=== PATIENT | female | born 1960 | race Caucasian/White ===

== ENCOUNTER 2016-03-08 14:37 | Inpatient (IN) | payer BC, MEDICARE ==
[~2016-03-08] VITALS: Ht 162.6 cm; Wt 60.1 kg
[2016-03-08] MEDS ORDERED: ALU/MAG/SIM 30 ML UDC PO PRN (15:10)
[2016-03-08] MEDS ORDERED: MAG HYDROX 30 ML UDC PO PRN (15:10)
[2016-03-08] MEDS ORDERED: GLUCAGON 1 MG VIAL IM PRN (15:10)
[2016-03-08] MEDS ORDERED: DEXTROSE 50% SYRINGE 50 ML IV PRN (15:10)
[2016-03-08 16:49] VITALS: BP_SYST 104; BP_SYST 110; RESP 18; TEMP 97.9; Ht 162.6 cm; Wt 60.1 kg
[2016-03-08] MEDS: ONDANSETRON 4 MG VIAL IV PRN (17:14)
[2016-03-08] MEDS: SODIUM CHLORIDE 0.45% 1,000 ML IV SCH (17:14)
[2016-03-08] MEDS: PAROXETINE HCL 20 MG TAB PO SCH (18:09)
[2016-03-08] MEDS: METRONIDAZOLE 500MG/100ML 100 ML IV SCH (18:12)
[2016-03-08] MEDS: ZOLPIDEM 5 MG TAB PO PRN (20:18)
[2016-03-08 20:39] VITALS: BP_SYST 112; RESP 18
[2016-03-09 00:46] VITALS: BP_SYST 122; RESP 16; TEMP 97.7
[2016-03-09] MEDS: METRONIDAZOLE 500MG/100ML 100 ML IV SCH ×5 (00:53→23:42)
[2016-03-09] MEDS: SODIUM CHLORIDE 0.45% 1,000 ML IV SCH ×2 (05:03→21:48)
[2016-03-09] MEDS: ONDANSETRON 4 MG VIAL IV PRN ×3 (05:03→21:43)
[2016-03-09 07:44] VITALS: BP_SYST 112; RESP 16; TEMP 98.1
[2016-03-09] MEDS: ACETAMINOPHEN 325 MG TAB PO PRN (08:05)
[2016-03-09] MEDS: PAROXETINE HCL 20 MG TAB PO SCH (08:05)
[2016-03-09 11:15] VITALS: BP_SYST 122; RESP 16; TEMP 97.5
[2016-03-09 15:14] VITALS: BP_SYST 130; RESP 16; TEMP 99.4
[2016-03-09] MEDS ORDERED: METOCLOPRAMIDE 10 MG/2 ML VIAL IV PUSH ONE (17:15)
[2016-03-09 19:48] VITALS: BP_SYST 130; RESP 16; TEMP 97.2
[2016-03-09] MEDS: ZOLPIDEM 5 MG TAB PO PRN (21:42)
[2016-03-09] MEDS: PRAMIPEXOLE 0.5 MG TAB PO SCH (21:42)
[2016-03-09] MEDS: RIFAXIMIN 550 MG TAB PO SCH (21:42)
[2016-03-09 23:35] VITALS: BP_SYST 118; RESP 16; TEMP 97.1
[2016-03-10] VITALS (7 sets, daily range): BP systolic 120–130; RESP 16–20; TEMP 97.9–98.7
[2016-03-10] MEDS: METRONIDAZOLE 500MG/100ML 100 ML IV SCH ×3 (05:17→17:03)
[2016-03-10] MEDS: RIFAXIMIN 550 MG TAB PO SCH ×2 (08:38→21:52)
[2016-03-10] MEDS: PAROXETINE HCL 20 MG TAB PO SCH (08:38)
[2016-03-10] MEDS ORDERED: SODIUM CHLORIDE 0.45% 1,000 ML IV SCH (12:40)
[2016-03-10] MEDS: ACETAMINOPHEN 325 MG TAB PO PRN (16:10)
[2016-03-10] MEDS: PRAMIPEXOLE 0.5 MG TAB PO SCH (21:52)
[2016-03-10] MEDS: ZOLPIDEM 5 MG TAB PO PRN (21:52)
[2016-03-11] VITALS (7 sets, daily range): BP systolic 104–140; RESP 18–20; TEMP 97.6–99.3
[2016-03-11] MEDS: METRONIDAZOLE 500MG/100ML 100 ML IV SCH ×4 (06:40→16:55)
[2016-03-11] MEDS: ACETAMINOPHEN 325 MG TAB PO PRN ×3 (07:25→20:01)
[2016-03-11] MEDS: RIFAXIMIN 550 MG TAB PO SCH ×2 (08:17→20:21)
[2016-03-11] MEDS: PAROXETINE HCL 20 MG TAB PO SCH (08:17)
[2016-03-11] MEDS: ONDANSETRON 4 MG VIAL IV PRN (17:41)
[2016-03-11] MEDS ORDERED: PROMETHAZINE 12.5 MG SUPP RECTAL PRN (18:10)
[2016-03-11] MEDS ORDERED: PROMETHAZINE 25 MG/ML VIAL IV PRN (18:10)
[2016-03-11] MEDS ORDERED: DILAUDID 1 MG/ML AMP IV PRN ×2 (18:10→18:20)
[2016-03-11] MEDS: ZOLPIDEM 5 MG TAB PO PRN (20:21)
[2016-03-11] MEDS: PRAMIPEXOLE 0.5 MG TAB PO SCH (20:21)
[2016-03-12] MEDS: METRONIDAZOLE 500MG/100ML 100 ML IV SCH ×2 (00:11→06:13)
[2016-03-12 04:42] VITALS: BP_SYST 130; RESP 18; TEMP 98.1
[2016-03-12 08:19] VITALS: BP_SYST 142; RESP 18; TEMP 98.8
[2016-03-12] MEDS: RIFAXIMIN 550 MG TAB PO SCH (08:38)
[2016-03-12] MEDS: PAROXETINE HCL 20 MG TAB PO SCH (08:40)
[2016-03-12 09:34] VITALS: BP_SYST 142; RESP 18; TEMP 98.8
[2016-03-12 09:44] VITALS: BP_SYST 142; RESP 18; TEMP 98.8
== END 2016-03-12 10:22 | disposition home or self-care (01) | DRG 392 ==
LOC: 4NT 14:37 → ENPENDDIS 03-09 12:34 → OBSVTOIN 03-09 12:34
PROVIDERS: ADMIT Internal Medicine Hematology & Oncology; ATTEND Internal Medicine Hematology & Oncology
DX: K58.0 Irritable bowel syndrome with diarrhea (principal); I10 Essential (primary) hypertension; K56.7 Ileus, unspecified; F32.9 Major depressive disorder, single episode, unspecified; E11.9 Type 2 diabetes mellitus without complications; D47.3 Essential (hemorrhagic) thrombocythemia; E78.5 Hyperlipidemia, unspecified; D72.829 Elevated white blood cell count, unspecified
CPT/HCPCS: 74000; 74020; 80048; 80053; 81003; 82150; 82947; 83690; 84300; 85025; 86255; 86671; 87045; 87046; 87088; 87493